=== PATIENT | female | born 1970 | race Caucasian/White ===

== ENCOUNTER → 2017-05-09 11:06 | Outpatient (CLI) | payer OTHER, SELFPAY ==
--- NOTE | 2017-05-09 11:11 | ECHOCS_ITS ---
Reason For Study: Chest Pain, SOB Procedure This was a 2D Doppler, Color Flow transthoracic echocardiogram. Exam performed in department. Left Ventricle Normal size and thickness. The estimated ejection fraction is 65 %. Normal diastology for age. No regional wall motion abnormalities noted. Right Ventricle Normal size and thickness. Normal systolic function. Atria Normal left atrium. Normal right atrium. Normal atrial septum. Mitral Valve The mitral valve is structurally normal. No prolapse or stenosis seen. Tricuspid Valve Normal tricuspid valve. Unable to estimate RV systolic pressure/pulmonary artery pressure due to technically difficult study. Aortic Valve Trisinus/trileaflet aortic valve. Normal aortic valve. Pulmonic Valve The pulmonic valve is not well visualized. Great Vessels Normal aortic root. Normal arch. Normal inferior vena cava. Inferior vena cava collapse with sniff. Pericardium/Pleural No pericardial effusion. Medication 22 gauge I.V. with prn adaptor inserted into right arm. Diluted definity 2ml given slow IV push to enhance endocardial definition. MMode/2D Measurements & Calculations LVIDd: 4.4 cm IVSd: 1.1 cm LVOT diam: 2.0 cm LVIDs: 3.2 cm LVPWd: 0.99 cm LVOT area: 3.0 cm2 FS: 27.2 % Ao root diam: 3.2 cm LAV(MOD-sp4): 47.5 ml LA A4 area: 17.8 cm2 LA dimension: 4.2 cm RA A4 area: 14.5 cm2 Time Measurements MV dec time: 0.20 sec Doppler Measurements & Calculations MV E max saad: 77.6 cm/sec Lat Peak E' Saad: 9.4 cm/sec Med Peak E' Saad: 8.6 cm/sec MV A max saad: 92.8 cm/sec E/E' lat: 8.3 E/E' med: 9.0 MV E/A: 0.84 MV V2 max: 105.9 cm/sec MV P1/2t max saad: 105.9 cm/sec Ao V2 max: 131.4 cm/sec MV max P.5 mmHg MV P1/2t: 102.5 msec Ao max P.9 mmHg MV V2 mean: 65.6 cm/sec MV dec slope: 302.6 cm/sec2 Ao V2 mean: 86.0 cm/sec MV mean P.0 mmHg MVA(P1/2t): 2.1 cm2 Ao mean P.5 mmHg MV V2 VTI: 34.4 cm Ao V2 VTI: 27.2 cm MVA(VTI): 1.6 cm2 STEPAN(I,D): 2.1 cm2 STEPAN(V,D): 2.2 cm2 LV V1 max: 95.6 cm/sec SV(LVOT): 56.7 ml PA V2 max: 90.5 cm/sec LV V1 max P.7 mmHg LV V1 mean P.6 mmHg LV V1 mean: 58.2 cm/sec LV V1 VTI: 18.6 cm Interpretation Summary The estimated ejection fraction is 65 %. Normal diastology for age. Unable to estimate RV systolic pressure/pulmonary artery pressure due to technically difficult study. There is no comparison study available. The study was technically difficult. Contrast injection was performed. Ordering Physician: Sang Bright Referring Physician: Sang Bright Performed By: Jer Kowalski RCS
--- NOTE | 2017-05-09 13:30 | STRESSREP ---
Stress Test Report Treadmill EKG: Resting EKG: Normal sinus rhythm, normal axis, normal intervals, no evidence of previous myocardial infarction. Treadmill EKG: The patient exercised according to Otis protocol for 4 minutes 28 seconds, achieving a maximum workload of 6.30 mets. Resting heart rate was initially 71 beats a minute and robert to maximum 1 5 0 bpm which represents 86% of the maximal age Davies heart rate. Resting blood pressure was 1 5 0/92, and robert to maximum 226/106. Test was terminated due to dyspnea and dizziness. During exercise patient's heart rate increased as expected. The patient had subtle upsloping ST segment changes during exercise which did not reach criteria for ischemia. Patient had rare PVCs during exercise. No angina was reported. Conclusions normal adequate treadmill EKG. Negative for ischemia by EKG criteria. No anginal symptoms noted. Rare PVCs noted. Baseline hypertension and hypertensive blood pressure response to exercise. Below average exercise capacity for age. Test terminated due to dyspnea and dizziness. Patient tolerated procedure well.
== END ==
PROVIDERS: Family Provider Family Medicine; PCP Family Medicine; Visit Provider Family Medicine
DX: R07.89 Other chest pain (principal); R06.02 Shortness of breath; I38 Endocarditis, valve unspecified; Z82.49 Family history of ischemic heart disease and other diseases of the circulatory system
CPT/HCPCS: 93017; 93306; Q9957; A4216; C8929